=== PATIENT | female | born 1985 | race Caucasian/White ===

== ENCOUNTER 2018-03-09 03:40 | Emergency (ER) | payer MEDICARE, OTHER ==
[2018-03-09 05:14] LABS: ABNORMAL IP MESSAGE 1; ADD MAN DIFF? NO; BASOPHILS % 0.1 % (0.0-2.0); HEMATOCRIT 27.5 % (37.0-47.0); HEMOGLOBIN 8.9 g/dl (12.0-16.0); LYMPHOCYTES # 0.5 10^3/ul (0.8-2.9); LYMPHOCYTES % 6.5 % (15.0-51.0); MEAN CORPUSCULAR HEMOGLOBIN 32.6 pg (29.0-33.0); MEAN CORPUSCULAR HGB CONC 32.4 g/dl (32.0-37.0); MEAN CORPUSCULAR VOLUME 100.7 fl (82.0-101.0); MEAN PLATELET VOLUME 9.8 fl (7.4-10.4); MONOCYTES % 0.6 % (0.0-11.0); NEUTROPHIL # 6.5 10^3/ul (1.6-7.5); NEUTROPHILS % 91.7 % (39.0-77.0); PLATELET COUNT 228 10^3/UL (140-415); RED BLOOD COUNT 2.73 10^6/ul (4.20-5.40); RED CELL DISTRIBUTION WIDTH 15.5 % (11.5-14.5)
[2018-03-09 05:14] LABS: WHITE BLOOD COUNT 7.1 10^3/ul (4.8-10.8)
[2018-03-09 05:19] LABS: POSITIVE DIFF @See below
[2018-03-09] MEDS: HYDROmorphONE 0.5 MG/0.5 ML SYG IV ×2 (05:25→07:12)
[2018-03-09] MEDS: DIPHENHYDRAMINE 50 MG INJ IV ×2 (05:25→07:13)
[2018-03-09 05:35] LABS: ANION GAP 32 (8-16); BLOOD UREA NITROGEN 60 mg/dl (7-20); CARBON DIOXIDE 25 mmol/L (21-31); CHLORIDE 93 mmol/L (97-110); CREATININE 6.86 mg/dl (0.44-1.00); GLUCOSE 193 mg/dl (70-220); MAGNESIUM 2.4 mg/dl (1.7-2.5); PHOSPHORUS 4.1 mg/dl (2.5-4.9); SODIUM 143 mmol/L (135-144)
[2018-03-09 05:38] LABS: POTASSIUM 6.7 mmol/L (3.5-5.1)
[2018-03-09 05:48] LABS: TROPONIN-I < 0.012 ng/ml (0.000-0.120)
[2018-03-09] MEDS ORDERED: DEXTROSE 50% 50 ML SYRINGE IV (06:00)
[2018-03-09] MEDS: ALBUTEROL 0.5% (NEB) 2.5 MG/0.5 ML AMP INH (06:03)
[2018-03-09] MEDS: INSULIN REGULAR, HUMAN 100 UNIT/1 ML 3ML VIAL IVP (06:17)
[2018-03-09] MEDS: DEXTROSE 50% 50 ML SYRINGE IV (06:18)
[2018-03-09] MEDS: NA POLYST SULFON 15 GM/60 ML BTL PO (06:18)
[2018-03-09] MEDS ORDERED: CHOLECALCIFEROL 1,000 UNIT TAB PO (09:00)
[2018-03-09] MEDS ORDERED: predniSONE 20 MG TAB PO (09:00)
[2018-03-09] MEDS ORDERED: LEVETIRACETAM 500 MG TAB PO (09:00)
[2018-03-09 09:32] LABS: ERYTHROCYTE SEDIMENTATION RATE 35 mm/Hr (0-20)
[2018-03-09] MEDS ORDERED: CALCIUM ACETATE 667 MG CAP PO (12:00)
[2018-03-09 20:55] LABS: RHEUMATOID FACTOR NEGATIVE (NEGATIVE)
[2018-03-10] MEDS ORDERED: PANTOPRAZOLE (EC) 40 MG TAB PO (06:00)
[2018-03-12 14:27] LABS: ANTI-DNA (DOUBLE STRANDED) <95 U/mL (< 301)
[2018-03-12 18:11] LABS: ANA SCREEN POSITIVE (NEGATIVE)
[2018-03-12 18:57] LABS: ANA PATTERN HOMOGENEOUS
== END 2018-03-09 08:24 | disposition left against medical advice (07) ==
LOC: E/R 08:24
DX: E87.70 Fluid overload, unspecified (principal); E87.5 Hyperkalemia; M32.9 Systemic lupus erythematosus, unspecified; N18.9 Chronic kidney disease, unspecified
CPT/HCPCS: 36415; 71045; 80048; 82962; 83735; 84100; 84484; 85025; 85651; 86038; 86226; 86430; 93005; 94664; 96374; 96375; 96376; 99291-25

== ENCOUNTER 2018-03-14 23:59 | Emergency (ER) | payer MEDICARE, OTHER ==
[2018-03-15 02:27] LABS: ADD MAN DIFF? NO
[2018-03-15 02:29] LABS: ABNORMAL IP MESSAGE 1; HEMATOCRIT 26.2 % (37.0-47.0); HEMOGLOBIN 8.3 g/dl (12.0-16.0); LYMPHOCYTES # 0.4 10^3/ul (0.8-2.9); LYMPHOCYTES % 6.5 % (15.0-51.0); MEAN CORPUSCULAR HEMOGLOBIN 32.5 pg (29.0-33.0); MEAN CORPUSCULAR HGB CONC 31.7 g/dl (32.0-37.0); MEAN CORPUSCULAR VOLUME 102.7 fl (82.0-101.0); MONOCYTE # 0.4 10^3/ul (0.3-0.9); MONOCYTES % 6.2 % (0.0-11.0); NEUTROPHIL # 5.3 10^3/ul (1.6-7.5); NEUTROPHILS % 86.3 % (39.0-77.0); NUCLEATED RED BLOOD CELLS% 0.5 /100WBC (0.0-0.0); PLATELET COUNT 134 10^3/UL (140-415); RED BLOOD COUNT 2.55 10^6/ul (4.20-5.40); RED CELL DISTRIBUTION WIDTH 15.1 % (11.5-14.5)
[2018-03-15 02:29] LABS: WHITE BLOOD COUNT 6.2 10^3/ul (4.8-10.8)
[2018-03-15 02:30] LABS: POSITIVE DIFF @See below
[2018-03-15 02:58] LABS: ANION GAP 23 (8-16); BLOOD UREA NITROGEN 68 mg/dl (7-20); CARBON DIOXIDE 29 mmol/L (21-31); CHLORIDE 96 mmol/L (97-110); CREATININE 5.36 mg/dl (0.44-1.00); GLUCOSE 184 mg/dl (70-220); POTASSIUM 4.3 mmol/L (3.5-5.1); SODIUM 144 mmol/L (135-144)
[2018-03-15] MEDS ORDERED: ASPIRIN 81 MG TAB PO (03:00)
[2018-03-15 04:07] LABS: TROPONIN-I < 0.012 ng/ml (0.000-0.120)
== END 2018-03-15 05:03 | disposition home or self-care (01) ==
LOC: FTE 23:59 → E/R 03-15 05:03
DX: R07.9 Chest pain, unspecified (principal); L93.0 Discoid lupus erythematosus; I12.9 Hypertensive chronic kidney disease with stage 1 through stage 4 chronic kidney disease, or unspecified chronic kidney disease; N18.9 Chronic kidney disease, unspecified; Z99.2 Dependence on renal dialysis
CPT/HCPCS: 36415; 71045; 80048; 84484; 85025; 93005; 99285-25

== ENCOUNTER 2018-03-22 | Inpatient (IN) | payer MEDICARE, OTHER ==
[2018-03-22] MEDS: SOD CHLORIDE 0.9% 1,000 ML IV (00:53)
[2018-03-22] MEDS: DIPHENHYDRAMINE 50 MG INJ IV (01:39)
[2018-03-22] MEDS: HYDROmorphONE 1 MG/5 ML IV SYRINGE IV (01:39)
[2018-03-22] MEDS: ONDANSETRON 4 MG INJ IV (01:39)
[2018-03-22] MEDS: SOD CHLORIDE 0.9% 500 ML IV (02:00)
[2018-03-22 02:01] LABS: ADD MAN DIFF? NO
[2018-03-22 02:03] LABS: WHITE BLOOD COUNT 4.8 10^3/ul (4.8-10.8)
[2018-03-22 02:03] LABS: BASOPHILS % 0.2 % (0.0-2.0); EOSINOPHILS # 0.1 10^3/ul (0.0-0.5); EOSINOPHILS % 1.9 % (0.0-7.0); HEMATOCRIT 23.7 % (37.0-47.0); HEMOGLOBIN 7.4 g/dl (12.0-16.0); LYMPHOCYTES % 20.8 % (15.0-51.0); MEAN CORPUSCULAR HGB CONC 31.2 g/dl (32.0-37.0); MEAN CORPUSCULAR VOLUME 105.8 fl (82.0-101.0); MEAN PLATELET VOLUME 9.8 fl (7.4-10.4); MONOCYTE # 0.5 10^3/ul (0.3-0.9); MONOCYTES % 9.9 % (0.0-11.0); NEUTROPHIL # 3.2 10^3/ul (1.6-7.5); NEUTROPHILS % 66.8 % (39.0-77.0); PLATELET COUNT 185 10^3/UL (140-415); RED BLOOD COUNT 2.24 10^6/ul (4.20-5.40); RED CELL DISTRIBUTION WIDTH 16.1 % (11.5-14.5)
[2018-03-22 02:25] LABS: ANION GAP 25 (8-16); BLOOD UREA NITROGEN 102 mg/dl (7-20); CARBON DIOXIDE 29 mmol/L (21-31); CHLORIDE 101 mmol/L (97-110); CREATININE 9.73 mg/dl (0.44-1.00); GLUCOSE 88 mg/dl (70-220); SODIUM 148 mmol/L (135-144)
[2018-03-22 02:36] LABS: CALCIUM 5.6 mg/dl (8.4-10.2)
[2018-03-22 02:38] LABS: TROPONIN-I < 0.012 ng/ml (0.000-0.120)
[2018-03-22 02:46] LABS: CREATINE KINASE 64 IU/L (23-200)
[2018-03-22] MEDS: NA BICARBONATE 8.4% 50 ML SYG IV (02:49)
[2018-03-22] MEDS: NA POLYST SULFON 15 GM/60 ML BTL PO ×2 (02:50→03:01)
[2018-03-22] MEDS: CALCIUM GLUCONATE 10% 1 GM in DEXTROSE 5% 100 ML IVPB (02:55)
[2018-03-22 02:59] LABS: CK INDEX 1.3; CK-MB 0.86 ng/ml (0.0-2.4); TROPONIN-I < 0.012 ng/ml (0.000-0.120)
[2018-03-22] MEDS ORDERED: DOCUSATE SODIUM 100 MG CAP PO (03:00)
[2018-03-22] MEDS ORDERED: NACL 0.9% 3 ML SYG IV (03:00)
[2018-03-22] MEDS ORDERED: BISACODYL (EC) 5 MG TAB PO (03:00)
[2018-03-22] MEDS ORDERED: ONDANSETRON 4 MG INJ IV ×2 (03:00)
[2018-03-22] MEDS ORDERED: HYDROCODONE/APAP (5/325) TAB PO (03:00)
[2018-03-22] MEDS ORDERED: ACETAMINOPHEN 325 MG TAB PO ×2 (03:00)
[2018-03-22] MEDS: PANTOPRAZOLE (EC) 40 MG TAB PO (06:00)
[2018-03-22 07:35] LABS: ADD MAN DIFF? NO
[2018-03-22] MEDS ORDERED: CALCIUM ACETATE 667 MG CAP PO (07:55)
[2018-03-22 07:58] LABS: ABNORMAL IP MESSAGE 1; BASOPHILS % 0.3 % (0.0-2.0); EOSINOPHILS # 0.1 10^3/ul (0.0-0.5); EOSINOPHILS % 2.6 % (0.0-7.0); HEMATOCRIT 22.4 % (37.0-47.0); LYMPHOCYTES % 26.6 % (15.0-51.0); MEAN CORPUSCULAR HEMOGLOBIN 32.5 pg (29.0-33.0); MEAN CORPUSCULAR HGB CONC 30.8 g/dl (32.0-37.0); MEAN CORPUSCULAR VOLUME 105.7 fl (82.0-101.0); MEAN PLATELET VOLUME 9.9 fl (7.4-10.4); MONOCYTE # 0.4 10^3/ul (0.3-0.9); NEUTROPHIL # 2.3 10^3/ul (1.6-7.5); PLATELET COUNT 145 10^3/UL (140-415); RED BLOOD COUNT 2.12 10^6/ul (4.20-5.40)
[2018-03-22 07:58] LABS: WHITE BLOOD COUNT 3.8 10^3/ul (4.8-10.8)
[2018-03-22 07:59] LABS: POSITIVE DIFF @See below
[2018-03-22] MEDS ORDERED: METHADONE 10 MG TAB PO (08:00)
[2018-03-22 08:01] LABS: HEMOGLOBIN 6.9 g/dl (12.0-16.0); PATH REVIEW? YES
[2018-03-22 08:06] LABS: ALANINE AMINOTRANSFERASE 27 IU/L (13-69); ALBUMIN 3.3 g/dl (3.3-4.9); ALBUMIN/GLOBULIN RATIO 1.37; ALKALINE PHOSPHATASE 142 IU/L (42-121); ASPARTATE AMINO TRANSFERASE 18 IU/L (15-46); BLOOD UREA NITROGEN 106 mg/dl (7-20); CARBON DIOXIDE 28 mmol/L (21-31); CHLORIDE 103 mmol/L (97-110); CREATININE 9.66 mg/dl (0.44-1.00); GLUCOSE 87 mg/dl (70-220); SODIUM 147 mmol/L (135-144); TOTAL PROTEIN 5.7 g/dl (6.1-8.1)
[2018-03-22 08:11] LABS: POTASSIUM 7.3 mmol/L (3.5-5.1)
[2018-03-22 08:12] LABS: ANION GAP 23 (8-16); CALCIUM 5.5 mg/dl (8.4-10.2)
[2018-03-22] MEDS ORDERED: CHOLECALCIFEROL 1,000 UNIT TAB PO (09:00)
[2018-03-22] MEDS ORDERED: LEVETIRACETAM 500 MG TAB PO (09:00)
[2018-03-22] MEDS ORDERED: predniSONE 20 MG TAB PO (09:00)
[2018-03-22 09:06] LABS: ERYTHROCYTE SEDIMENTATION RATE 20 mm/Hr (0-20)
[2018-03-22 10:14] LABS: ANISOCYTOSIS 1+ (0-0); BAND NEUTROPHILS % (M) 1 % (0-4); BURR CELLS 3+ (0-0); EOSINOPHILS % (M) 3 % (0-7); LYMPHOCYTES #M 0.9 10^3/ul (0.8-2.9); LYMPHOCYTES % (M) 25 % (15-51); MICROCYTOSIS 1+ (0-0); MONOCYTE #M 0.2 10^3/ul (0.3-0.9); MONOCYTES % (M) 7 % (0-11); PLATELET ESTIMATE NORMAL; POIKILOCYTOSIS 2+ (0-0); POLYCHROMASIA 1+ (0-0); SEG NEUT #M 2.4 10^3/ul (1.6-7.5); SEGMENTED NEUTROPHILS (M) % 64 % (39-77); SMUDGE%M 10 % (0-0)
[2018-03-22] MEDS ORDERED: EPOETIN 10000 UNITS/1 ML INJ (ESRD) SC (17:00)
== END 2018-03-22 08:20 | disposition left against medical advice (07) | DRG 640 ==
LOC: E/R → TEL 02:41
DX: E87.5 Hyperkalemia (principal); N18.6 End stage renal disease; I12.0 Hypertensive chronic kidney disease with stage 5 chronic kidney disease or end stage renal disease; M32.9 Systemic lupus erythematosus, unspecified; E87.0 Hyperosmolality and hypernatremia; E83.51 Hypocalcemia; G89.29 Other chronic pain; G40.909 Epilepsy, unspecified, not intractable, without status epilepticus; D63.1 Anemia in chronic kidney disease; Z76.5 Malingerer [conscious simulation]; Z99.2 Dependence on renal dialysis; Z91.15 Patient's noncompliance with renal dialysis
CPT/HCPCS: 36415; 71045; 80048; 80053; 82550; 82553; 84484; 85025; 85651; 93005; 96365; 96375; 99291-25

== ENCOUNTER 2018-04-17 11:59 | Emergency (ER) | payer MEDICARE, OTHER | END 2018-04-17 17:38 | disposition left against medical advice (07) | LOC: E/R 11:59 | DX: R07.2 Precordial pain (principal); R40.2252 Coma scale, best verbal response, oriented, at arrival to emergency department; I12.9 Hypertensive chronic kidney disease with stage 1 through stage 4 chronic kidney disease, or unspecified chronic kidney disease; N18.9 Chronic kidney disease, unspecified; R40.2362 Coma scale, best motor response, obeys commands, at arrival to emergency department; R40.2142 Coma scale, eyes open, spontaneous, at arrival to emergency department | CPT/HCPCS: 93005; 99283-25 ==

== ENCOUNTER 2018-05-18 02:54 | Emergency (ER) | payer MEDICARE, OTHER | END 2018-05-18 05:50 | disposition left against medical advice (07) | LOC: E/R 02:54 | DX: Z53.21 Procedure and treatment not carried out due to patient leaving prior to being seen by health care provider (principal); R07.9 Chest pain, unspecified | CPT/HCPCS: 71045; 93005 ==